=== PATIENT | female | born 1960 | race African-American/Black ===

== ENCOUNTER 2020-11-02 19:33 | Emergency (ER) | payer OTHER ==
[~2020-11-02] VITALS: Ht 157.5 cm; Wt 52.0 kg
--- NOTE | 2020-11-02 20:08 | PHYS DOC ---
Past History Past Medical History: Asthma, Diabetes Past Surgical History: No Surgical History Smoking: Cigarettes Alcohol Use: Rarely Drug Use: None General Adult EDM: Chief Complaint: HAND PROBLEM HPI: HPI: 60-year-old female presents with right third MCP swelling and tenderness that started today. Patient reports she was working doing laundry at work and when she pulled out a load noticed the swelling and tenderness. Patient reports pain with extension of finger. Reports swelling to dorsum of MCP. Denies numbness or tingling. Denies prior injury. Review of Systems: Review of Systems: Constitutional: Denies fever or chills Musculoskeletal: Reports dorsum of right third MCP with swelling and tenderness Integument: Denies rash; reports swelling to dorsum of right third MCP Neurologic: Denies headache, focal weakness or sensory changes Complete systems were reviewed and found to be within normal limits, except as documented in this note. Current Medications: Current Meds: Current Medications Medications (Trade) Dose Ordered Sig/Ligia Start Time Stop Time Status Last Admin Dose Admin Ibuprofen (Motrin) 400 mg 1X ONCE 11/02/20 20:15 11/02/20 20:16 UNV Allergies: Allergies: Allergies Coded Allergies Type Severity Reaction Last Updated Verified No Known Drug Allergies 11/02/20 No Physical Exam: PE: Constitutional: Well developed, well nourished, no acute distress, non-toxic appearance HENT: Normocephalic, atraumatic Eyes: Conjunctiva normal, no discharge Neck: Normal range of motion, supple Lungs & Thorax: No respiratory distress, equal chest rise and fall Skin: Warm, dry, no erythema, swelling and contusion noted to dorsum of right third MCP Extremities: Right third MCP tenderness on palpation, ROM intact, swelling as above to right third MCP, tendon function intact, right radial pulse +2, no deformity Neurologic: Alert and oriented X 3, no focal deficits noted Psychologic: Affect normal, judgment normal Current Patient Data: Vital Signs: Vital Signs Date Time Temp Pulse Resp B/P (MAP) Pulse Ox O2 Delivery O2 Flow Rate FiO2 11/02/20 19:50 97.9 79 16 168/93 (118) 96 Room Air EKG: EKG: [] Radiology/Procedures: Radiology/Procedures: PROCEDURE: HAND RIGHT 3V EXAM: RIGHT HAND 3 VIEWS. HISTORY: Pain after injury. COMPARISON: None. FINDINGS: There is flexion at the fifth distal interphalangeal joint. A tiny ossicle is noted along the dorsal aspect of the joint. There also appears to be mild radial deviation. 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 Distal interphalangeal osteoarthritis is mild to moderate elsewhere. An ossicle along the ulnar aspect of the fourth proximal phalangeal head measures 2 mm and may represent a phlebolith. IMPRESSION: 1. Correlate for extension function at the fifth distal interphalangeal joint to exclude a tiny avulsion along the dorsal aspect of the distal phalanx. 2. Osteoarthritis as above. Electronically signed by: Kim Morris MD (11/02/2020 8:27 PM) [id number] Heart Score: C/O Chest Pain: N/A Course & Med Decision Making: Course & Med Decision Making Pertinent Imaging studies reviewed. (See chart for details) Patient presents with pain and swelling to dorsum of right third MCP. Reports was doing laundry and may have caught her finger. No deformity of that finger noted. Patient does have arthritic-looking hands. X-ray obtained without signs of fracture or dislocation of right third MCP. There is concern for a possible PIP fracture to fifth digit. Patient reports this is chronic in nature. Ice pack applied. Pain addressed with oral ibuprofen. Arias wrap provided for comfort. Patient educated on RICE. Patient stable for discharge with outpatient follow-up with PCP. Discussed findi ngs and plan with patient, who acknowledges understanding and agreement. Patrick Disclaimer: Patrick Disclaimer: This electronic medical record was generated, in whole or in part, using a voice recognition dictation system. Splinting Splinting : Location: Right hand Pre-Made Type: Arias bandage Pre-Proc Neuro Vasc Exam: normal Post-Proc Neuro Vasc Exam: normal, unchanged from pre-exam Departure Departure: Impression: Primary Impression: Contusion of hand, right Qualified Codes: S60.221A - Contusion of right hand, initial encounter Disposition: HOME / SELF CARE / HOMELESS Condition: STABLE Referrals: NON,STAFF (PCP) Patient Instructions: Elastic Bandage and RICE, Hand Contusion, [id number] Additional Instructions: ICE 20 min on then leave off next 20 mins. Repeat several times daily as needed for discomfort/swelling. Use over the counter Tylenol and/or Ibuprofen for pain or discomfort. SILVA,JORGE LUIS R DO Nov 02, 2020 20:07
[2020-11-02] MEDS ORDERED: IBUPROFEN 400 MG TABLET. PO ONE (20:15)
[2020-11-02 20:19] VITALS: BP 175/98
--- NOTE | 2020-11-02 20:30 | RAD ---
EXAM: RIGHT HAND 3 VIEWS. HISTORY: Pain after injury. COMPARISON: None. FINDINGS: There is flexion at the fifth distal interphalangeal joint. A tiny ossicle is noted along t he dorsal aspect of the joint. There also appears to be mild radial deviation. 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 Distal interphalangeal osteoarthritis is mild to moderate elsewhere. An ossicle al rick the ulnar aspect of the fourth proximal phalangeal head measures 2 mm and may represent a phlebol ith. IMPRESSION: 1. Correlate for extension function at the fifth distal interphalangeal joint to exclude a tiny avuls ion along the dorsal aspect of the distal phalanx. 2. Osteoarthritis as above. Electronically signed by: Kim Morris MD (11/02/2020 8:27 PM) [id number]
== END 2020-11-02 20:20 | disposition home or self-care (01) ==
LOC: ER 19:33
DX: S60.221A Contusion of right hand, initial encounter (principal); J45.909 Unspecified asthma, uncomplicated; E11.9 Type 2 diabetes mellitus without complications; F17.210 Nicotine dependence, cigarettes, uncomplicated; X50.9XXA Other and unspecified overexertion or strenuous movements or postures, initial encounter; Y93.89 Activity, other specified; Y92.89 Other specified places as the place of occurrence of the external cause; Y99.8 Other external cause status
CPT/HCPCS: 73130; 99283